=== PATIENT | female | born 1940 | race Caucasian/White ===

== ENCOUNTER 2024-05-14 08:26 | Outpatient (CLI) | payer MEDICARE ==
[2024-05-14 09:26] LABS: ALBUMIN 3.6 G/DL (3.4-5.0); ANION GAP 7 (8-16); BLOOD UREA NITROGEN 11 MG/DL (7-18); BUN/CREATININE RATIO 13.8 (10.0-20.0); CALCIUM 9.2 MG/DL (8.5-10.1); CHLORIDE 93 MMOL/L (99-107); GLUCOSE 90 MG/DL (70-104); POTASSIUM 4.8 MMOL/L (3.5-5.1); SODIUM 128 MMOL/L (135-145); TOTAL CARBON DIOXIDE 27.6 MMOL/L (24-32); eGFR 68 ML/MIN
[2024-05-14] MEDS ORDERED: GADOTERATE MEGLUMINE 7.5 MMOL/15 ML VIAL IV ONE (18:00)
== END 2024-05-14 23:59 | disposition home or self-care (01) ==
LOC: EDBD 08:26 → MRI 08:26
PROVIDERS: ATTEND Surgery
DX: C34.90 Malignant neoplasm of unspecified part of unspecified bronchus or lung (principal); G93.89 Other specified disorders of brain; Z96.1 Presence of intraocular lens
CPT/HCPCS: 36415; 70553; 80048; A9575

== ENCOUNTER 2024-05-25 08:47 | Inpatient (IN) | payer MEDICARE ==
[2024-05-24 11:13] LABS: BASOPHILS # (AUTO) 0.1 X10'3 (0-0.2); BASOPHILS % (AUTO) 0.9 % (0-1); EOSINOPHILS # (AUTO) 0.2 X10'3 (0-0.9); EOSINOPHILS % (AUTO) 3.3 % (0-6); LYMPHOCYTES # (AUTO) 0.7 X10'3 (1.1-4.8); MEAN CORPUSCULAR HEMOGLOBIN 33.1 PG (27.0-31.0); MEAN CORPUSCULAR VOLUME 97.5 FL (78-98); MEAN PLATELET VOLUME 7.1 FL (7.4-10.4); MONOCYTES # (AUTO) 0.7 X10'3 (0-0.9); NEUTROPHILS # (AUTO) 5.7 X10'3 (1.8-7.7); NEUTROPHILS % (AUTO) 75.8 % (42-75); PRE OP HEMATOCRIT 32.2 % (35.0-45.0); PRE OP PLATELET COUNT 363 X10'3 (140-440); PRE OP WHITE BLOOD COUNT 7.5 10'3 (4.8-10.8); RED CELL DISTRIBUTION WIDTH 13.4 % (11.5-14.5)
[2024-05-24 11:19] LABS: PRE OP HEMOGLOBIN 10.9 g/dL (12.0-16.0)
[2024-05-24 11:30] LABS: ALBUMIN 3.7 G/DL (3.4-5.0); ALBUMIN/GLOBULIN RATIO 1.4 (1.1-1.5); ALKALINE PHOSPHATASE 81 IU/L (46-116); BLOOD UREA NITROGEN 13 MG/DL (7-18); BUN/CREATININE RATIO 16.9 (10.0-20.0); CALCIUM 8.9 MG/DL (8.5-10.1); CHLORIDE 97 MMOL/L (99-107); CREATININE 0.77 MG/DL (0.40-0.90); PRE OP ALT 15 U/L (30-65); PRE OP ANION GAP 5 (8-16); PRE OP AST 17 U/L (10-37); PRE OP BILIRUB, TOTAL 0.5 MG/DL (0.0-1.0); PRE OP GLUCOSE 97 MG/DL (70-104); PRE OP POTASSIUM 3.8 MMOL/L (3.4-5.1); PRE OP SODIUM 131 MMOL/L (135-145); TOTAL CARBON DIOXIDE 28.8 MMOL/L (24-32); TOTAL PROTEIN 6.4 G/DL (6.4-8.2); eGFR 71 ML/MIN
[2024-05-24 11:34] LABS: PRE OP PROTIME 10.6 SECONDS (9.0-12.0)
[~2024-05-25] VITALS: Ht 160 cm; Wt 58.8 kg
[2024-05-25] VITALS (31 sets, daily range): BP systolic 136–183; BP diastolic 72–102; PULSE 59–84; RESP 11–19; TEMP 97.4; O2SAT 91–100
[2024-05-25] MEDS: cefazolin 2gm/D5W 100mL 100 ML IV ONE (05:30)
[~2024-05-25 08:47] MED LIST: ASCO100031 PO; CHOL200012 PO; LISI20TA28 PO; MAGN400C PO; MULT1TAB PO; OMEP40CA21 PO; OSC500T PO; ROSU10TA72 PO; VITA1CAP PO; VITE400C PO; XAL0.005OS EACHEYE; ZINC220T3 PO
[2024-05-25] MEDS: famotidine 20mg tablet PO ONE (10:54)
[2024-05-25] MEDS: ringers solution, lacted 1,000 ML IV SCH ×2 (10:55→12:00)
[2024-05-25 11:17] LABS: ISTAT CREATININE 0.7 mg/dL (0.6-1.1); ISTAT HGB 10.9 g/dl (12.0-16.0); ISTAT IONIZED CALCIUM 1.2 mmol/L (1.03-1.32); POC BUN/CREATININE RATIO 18.6 (6.6-38.0)
[2024-05-25] MEDS ORDERED: meperidine/PF 25mg/ml syringe IV PRN ×3 (12:00)
[2024-05-25] MEDS ORDERED: ondansetron/PF 4mg/2ml inj IV PRN (12:00)
[2024-05-25] MEDS ORDERED: labetalol 20mg/4ml (5mg/ml) syringe IV PRN (12:00)
[2024-05-25] MEDS ORDERED: proCHLORperazine 10 MG/2 ml inj IV PRN (12:00)
[2024-05-25] MEDS ORDERED: enalaprilat dihydrate 2.5mg/2ml vial IV PRN (12:00)
[2024-05-25] MEDS ORDERED: morphine 4 MG/ML inj SYRINge IV PRN (12:00)
[2024-05-25] MEDS: INDOCYANINE GREEN 25 MG/10 ML VIAL IV ONE (12:27)
[2024-05-25] MEDS: BUPIVACAINE liposomal/PF 13.3 MG/ML vial IM ONE (12:28)
[2024-05-25] MEDS: BUPIVAcaine 2.5mg/ml inj 50ml vial (contains preservative) ONE (12:28)
[2024-05-25] MEDS ORDERED: fentaNYL /PF 50mcg/ml 5ml ampule ONE (12:30)
[2024-05-25] MEDS ORDERED: midazolam 1 mg/ML 2ml injection ONE (12:30)
[2024-05-25] MEDS ORDERED: rocuronium 10mg/ml inj IV ONE ×2 (12:34→14:34)
[2024-05-25 13:36] LABS: CLARITY,URINE SLIGHTLY CLOUDY (Clear); COLOR,URINE YELLOW (Yellow); UA COLLECTION TYPE VOIDED
[2024-05-25 13:38] LABS: GLUCOSE, URINE NEGATIVE (Neg); KETONES,URINE NEGATIVE (Neg); NITRITES, URINE POSITIVE (Neg); OCCULT BLOOD,URINE NEGATIVE (Neg); PROTEIN,URINE NEGATIVE (Neg)
[2024-05-25 13:39] LABS: BACTERIA,URINE 4+ /HPF (Neg); BILIRUBIN,URINE NEGATIVE (Neg); LEUKOCYTE ESTERASE ,URINE SMALL (Neg); UROBILINOGEN,URINE 0.2 E.U/dL (0.2-1.0); WBC,URINE 30-50 /HPF (0-4)
[2024-05-25 13:40] LABS: MUCUS STRANDS FEW /LPF (Neg); SQUAMOUS EPITHELIAL CELL,UR FEW /LPF (FEW)
[2024-05-25] MEDS: sugammadex 200mg/2ml injection IV ONE (14:25)
[2024-05-25] MEDS ORDERED: propofol inj 20 ML IV ONE (14:34)
[2024-05-25] MEDS ORDERED: methylPREDNISolone sod succ 125mg/2ml vial ONE (14:34)
[2024-05-25] MEDS: morphine 2 MG/ML inj. syringe IV PRN (16:33)
[2024-05-25] MEDS ORDERED: Melatonin 3mg tablet PO PRN (21:20)
[2024-05-25] MEDS: hydrALAZINE 20mg/ml inj. IV PRN (21:33)
[2024-05-25] MEDS: acetaminophen 325mg/10.15ml oral unit dose solution PO PRN (21:34)
[2024-05-25] MEDS: Melatonin 3mg tablet PO PRN (21:34)
[2024-05-25] MEDS: Chloraseptic (Phenol) Spray 177ml MM PRN (21:35)
[2024-05-26] VITALS (12 sets, daily range): BP systolic 119–185; BP diastolic 76–90; PULSE 68–80; RESP 9–17; O2SAT 94–99
[2024-05-26] MEDS: lisinopril 20mg tablet PO SCH (07:06)
[2024-05-26] MEDS: magnesium oxide 400mg tablet PO SCH (07:19)
[2024-05-26] MEDS: latanoprost 0.005% 2.5ml ophthalmic drops EACHEYE SCH (07:19)
[2024-05-26] MEDS: atorvastatin 20mg tablet PO SCH (07:19)
[2024-05-26] MEDS: calcium carbonate 500mg tablet PO SCH (07:19)
[2024-05-26] MEDS: VITAMIN B COMPLEX PO SCH (07:19)
[2024-05-26] MEDS: cholecalciferol (vitamin D3) 1,000 unit (25mcg) tablet PO SCH (07:20)
[2024-05-26] MEDS: zinc sulfate 220mg capsule PO SCH (07:20)
[2024-05-26] MEDS: ascorbic acid 500mg tablet PO SCH (07:20)
[2024-05-26] MEDS: pantoprazole 40mg Tablet.DR PO SCH (07:20)
[2024-05-28 07:19] LABS: ABG BASE EXCESS 0.4 mmol/L (-2.0-3.0); ABG HCO3 23.3 mmol/L (21.0-28.0); ABG OXYGEN SATURATION 96.7 % (94.0-98.0); ABG PCO2 (T) 31.9 mmHg (32.0-45.0); ABG PH (T) 7.481 (7.350-7.450); ABG PO2 (T) 91.3 mmHg (83.0-108.0); FCOHb 0.3 % (0.5-1.5); FHHb 3.3 % (0.0-5.0); FMetHb 0.3 % (0.0-1.5); FO2Hb 96.1 % (94.0-98.0); MODE ROOM AIR; TOTAL HEMOGLOBIN 11.9 G/dl (12.0-16.0)
== END 2024-05-26 12:22 | disposition home or self-care (01) | DRG 182 ==
LOC: PAS IN 08:47 → CICU 2S 18:47
PROVIDERS: ADMIT Surgery; ATTEND Surgery
DX: D38.1 Neoplasm of uncertain behavior of trachea, bronchus and lung (principal); Z53.8 Procedure and treatment not carried out for other reasons
CPT/HCPCS: 36415; 36600; 71045; 71046; 80047; 80053; 81001; 82803; 82948; 85018; 85025; 85610; 85730; 86885; 86900; 86901; 86920; 87077; 87081; 87088; 87186; A4314; A4615; C9290; G0378; J0360; J0690; J2250; J2270; J2704; J2919; J3010; J3490; J7120